=== PATIENT | male | born 1965 | race Hispanic/Latino ===

== ENCOUNTER 2017-11-08 05:50 | Day surgery (SDC) | payer OTHER ==
[2017-11-08 06:37] LABS: Basophils # (Auto) 0.1 K/mm3 (0.0-0.1); Basophils % (Auto) 0.7 % (0.0-1.8); Eosinophils # (Auto) 0.1 K/mm3 (0.0-0.4); Eosinophils % (Auto) 1.1 % (0.0-4.3); Lymphocytes % (Auto) 29.5 % (13.4-35.0); Mean Corpuscular HGB Conc 33 % (32-34); Mean Corpuscular Hemoglobin 29 pg (28-32); Mean Corpuscular Volume 86 fl (84-94); Monocytes # (Auto) 0.6 K/mm3 (0.0-0.8); Monocytes % (Auto) 8.1 % (0.0-7.3); Platelet Count 235 K/mm3 (140-440); Red Blood Count 5.25 M/mm3 (3.65-5.03); Red Cell Distribution Width 13.8 % (13.2-15.2)
[2017-11-08 06:48] LABS: INR 0.87 (0.87-1.13)
[2017-11-08 06:50] LABS: BUN/Creatinine Ratio 12; Blood Urea Nitrogen 11 mg/dL (9-20); Calcium 9.6 mg/dL (8.4-10.2); Hemolysis Index 4
[2017-11-08] MEDS ORDERED: NACL 0.9% 500 ML 500 ML IV SCH (07:00)
[2017-11-08] MEDS ORDERED: HEPARIN/NS 5000 UNIT/500ML(CATH LAB) 1,000 ML IR ONE (07:15)
[2017-11-08] MEDS ORDERED: CALAN ONE (07:15)
[2017-11-08] MEDS ORDERED: HEPARIN 10,000 UNITS/10 ML ONE (07:15)
[2017-11-08] MEDS ORDERED: VERSED ONE (07:16)
[2017-11-08] MEDS ORDERED: XYLOCAINE 2% INFILTRATI ONE (07:16)
[2017-11-08] MEDS ORDERED: NITROGLYCERIN SYRINGE 3 ML ONE (07:16)
[2017-11-08] MEDS ORDERED: SUBLIMAZE ONE (07:17)
[2017-11-08 10:57] VITALS: BP 126/89
--- NOTE | 2017-12-10 07:28 | Cardiac Catherization Report ---
CARDIAC CATH REPORT INDICATION: Increasing chest pain consistent with progressive angina. DESCRIPTION OF PROCEDURE: The patient was prepped in the usual sterile fashion. Access was obtained through the right radial artery without complication. A TIG catheter was used to engage the left and right coronaries. It was also used for the left ventriculography. There were no complications. The patient remained in stable condition. There was no significant blood loss. There were no complications. There were no specimens retrieved. CORONARY ANATOMY: 1. The left main is a relatively short vessel and bifurcates into the left anterior descending and circumflex. The left anterior descending is tortuous with mild luminal irregularities without obstructive disease. The irregularities are less than 20%. The circumflex is a medium size vessel that is also slightly tortuous. It has mild luminal irregularities less than 20%. 2. The right coronary artery is large and dominant and is also tortuous. It has nonobstructive mild luminal irregularities of 20-30%. LEFT VENTRICULOGRAPHY: There is no gradient across the aortic valve. The left ventricular wall motion appears normal. The estimated ejection fraction is 55%. FINAL CONCLUSIONS: 1. Mild nonobstructive coronary artery disease. 2. Preserved left ventricular systolic function. PLAN: 1. Recommend alternative evaluation for causes of chest pain. 2. Therapeutic lifestyle change for mild nonobstructive coronary artery disease, which includes diet and statin therapy. JOB# [id number] GP/NTS
== END 2017-11-08 10:50 | disposition home or self-care (01) ==
LOC: CATHLABREC 05:50
PROVIDERS: ATTEND Internal Medicine Cardiovascular Disease
DX: I25.10 Atherosclerotic heart disease of native coronary artery without angina pectoris (principal); I11.0 Hypertensive heart disease with heart failure; I50.30 Unspecified diastolic (congestive) heart failure; M19.90 Unspecified osteoarthritis, unspecified site; M10.9 Gout, unspecified; F32.9 Major depressive disorder, single episode, unspecified; G47.00 Insomnia, unspecified; E78.5 Hyperlipidemia, unspecified; I42.9 Cardiomyopathy, unspecified; E03.9 Hypothyroidism, unspecified; G47.30 Sleep apnea, unspecified; Z87.891 Personal history of nicotine dependence
CPT/HCPCS: 36415; 80048; 85025; 85610; 85730; 93005; 93010; 93458; 99156; 99157; C1887; C1894; J1644; J2250; J3010; J7040; Q9967